=== PATIENT | male | born 1945 | race Caucasian/White ===

== ENCOUNTER 2023-11-30 08:02 | Inpatient (IN) ==
[~2023-11-30 08:02] MED LIST: Metoclopramide 5 MG/ML VIAL (10 mg) IV PRN; NS 0.45% 1000 ml BAG 1,000 ML IV SCH; Naloxone 0.4 mg VIAL 0.4 mg/ml 1 ml VIAL IV PRN; Ondansetron 4 mg VIAL 2 MG/ML 2 ml VIAL IV PRN; fentaNYL 100 mcg/2 ml 50 MCG/ML VIAL IV PRN
[2023-11-30] MEDS: Acetaminophen IV 1 GM/100ML 1,000 MG/100 ML BAG IV ONE (08:25)
[2023-11-30] MEDS: Buffered Lidocaine 1% SYRIN 1 ml INTRADERM ONE (08:25)
[2023-11-30] MEDS: Scopolamine 1 mg/72hr PATCH TRANSDERM ONE (08:26)
[2023-11-30] MEDS ORDERED: Tranexamic Acid 1 GM/100ML BAG 2,000 MG/200 ML BAG IV ONE (08:42)
[2023-11-30] MEDS ORDERED: ceFAZolin 2 GM PREMIX 2 GM/50 ML BAG ONE (08:42)
[2023-11-30] MEDS ORDERED: KETAMINE HCL 10 MG/ML 20 ml VIAL (200 MG) ONE ×2 (08:46→08:51)
[2023-11-30] MEDS ORDERED: Lidocaine 2% PF 5 ML VIAL ONE (08:46)
[2023-11-30] MEDS: Lactated Ringers 1000 ml BAG 1,000 ML IV SCH ×2 (08:48→16:40)
[2023-11-30] MEDS ORDERED: Midazolam 2 mg/2 ml VIAL 1 mg/ml 2 ml VIAL (2 mg) ONE (08:51)
[2023-11-30 09:03] LABS: Rapid COVID-19 Molecular Undetected (Undetected)
[2023-11-30] MEDS ORDERED: fentaNYL 250 mcg/5 ml 50 MCG/ML 5 ml VIAL (250 MCG) ONE (09:42)
[2023-11-30] MEDS ORDERED: Rocuronium 50 mg VIAL 10 mg/ml 5 ml VIAL (50 mg) ONE ×2 (09:42→12:23)
[2023-11-30] MEDS ORDERED: ROPIVACAINE 5 MG/ML 30 ML BTL (0.5%) ONE (10:31)
[2023-11-30] MEDS ORDERED: ceFAZolin VIAL VIAL ONE (12:37)
[2023-11-30] MEDS ORDERED: Ondansetron 4 mg VIAL 2 MG/ML 2 ml VIAL ONE (13:01)
[2023-11-30] MEDS ORDERED: Dexamethasone IV 4 MG/ML VIAL 1 ml VIAL ONE (13:01)
[2023-11-30] MEDS ORDERED: Calcium Carb (TUMS) 500 mg CHEW TAB PO PRN (14:56)
[2023-11-30] MEDS ORDERED: Ondansetron ODT 4 mg TAB 4 MG TAB PO PRN (14:56)
[2023-11-30] MEDS ORDERED: Morphine 2 MG/ML SYRINGE IV PRN (14:56)
[2023-11-30] MEDS ORDERED: Lactulose 30 ml UDC PO PRN (14:56)
[2023-11-30] MEDS: ceFAZolin 2 GM PREMIX 2 GM/50 ML BAG IV SCH (20:46)
[2023-12-01] MEDS: Magnesium Hydroxide LIQ 30 ML UDC PO SCH (03:13)
[2023-12-01 06:26] LABS: Hematocrit 31.9 % (38-53); Hemoglobin 10.8 g/dL (13.2-16.3); Mean Platelet Volume 8.5 fL (7.5-11.2); Platelet Count 181 10^3/uL (150-450)
[2023-12-01 06:52] LABS: Calcium 9.3 mg/dL (8.6-10.3); Creatinine, Serum 0.92 mg/dL (0.67-1.17); Potassium 4.4 mmol/L (3.5-5.0); eGFR CKD-EPI 84.1 (>60)
[2023-12-01] MEDS: Vitamin THERAPEUTIC TAB PO SCH (08:57)
[2023-12-01] MEDS: Cholecalciferol (VIT D3) 1,000 unit TAB PO SCH (08:57)
[2023-12-01] MEDS: Lactated Ringers 1000 ml BAG 500 ML IV ONE (12:10)
[2023-12-01 14:26] LABS: Hematocrit 27.4 % (38-53); Hemoglobin 9.3 g/dL (13.2-16.3)
[2023-12-01] MEDS: Lactated Ringers 1000 ml BAG 1,000 ML IV ONE (14:31)
[2023-12-02 06:59] LABS: Hematocrit 26.7 % (38-53); Hemoglobin 9.2 g/dL (13.2-16.3); Mean Platelet Volume 8.5 fL (7.5-11.2); Platelet Count 137 10^3/uL (150-450)
[2023-12-03 06:07] LABS: Hematocrit 24.1 % (38-53); Hemoglobin 8.3 g/dL (13.2-16.3); Mean Platelet Volume 8.1 fL (7.5-11.2); Platelet Count 140 10^3/uL (150-450)
[2023-12-03] MEDS: Magnesium Hydroxide LIQ 30 ML UDC PO PRN (08:29)
[2023-12-04 05:57] LABS: Hematocrit 24.3 % (38-53); Hemoglobin 8.1 g/dL (13.2-16.3); Mean Platelet Volume 7.9 fL (7.5-11.2); Platelet Count 160 10^3/uL (150-450)
[2023-12-05 06:58] LABS: Hematocrit 24.5 % (38-53); Hemoglobin 8.4 g/dL (13.2-16.3); Platelet Count 194 10^3/uL (150-450)
[2023-12-06 09:55] VITALS: BP 99/55
== END 2023-12-06 10:57 | DRG 470 ==
LOC: OR 08:02 → SSU 08:02
PROVIDERS: ADMIT Orthopaedic Surgery Adult Reconstructive Orthopaedic Surgery; ATTEND Orthopaedic Surgery Adult Reconstructive Orthopaedic Surgery